=== PATIENT | female | born 1990 ===

== ENCOUNTER 2018-01-25 11:08 | Emergency (ER) | payer OTHER ==
[~2018-01-25] VITALS: Ht 157.5 cm; Wt 64.4 kg
[2018-01-25] MEDS ORDERED: PROGESTERONE200 MG (11:36)
== END 2018-01-25 20:21 | disposition home or self-care (01) ==
LOC: ER 11:08
DX: O23.42 Unspecified infection of urinary tract in pregnancy, second trimester (principal); Z34.82 Encounter for supervision of other normal pregnancy, second trimester